=== PATIENT | male | born 1960 | race Caucasian/White ===

== ENCOUNTER 2020-08-03 18:59 | Emergency (ER) | payer BC ==
[~2020-08-03] VITALS: Ht 185.4 cm; Wt 83.9 kg
[2020-08-03 19:20] VITALS: BP 138/77
[2020-08-03] MEDS ORDERED: LIDOCAINE HCL/MPF 1% 30 ML VIAL IJ ONE (19:32)
--- NOTE | 2020-08-03 19:39 | NUR ---
ELIDA SCHULTE AT BEDSIDE FOR SUTURING
[2020-08-03] MEDS ORDERED: ACETAMINOPHEN ES 500 MG TABLET ONE (19:55)
[2020-08-03] MEDS ORDERED: TDAP [DIPH/PERTUSSIS/TET] 0.5 ML VIAL IM ONE (19:55)
[2020-08-03] MEDS: ACETAMINOPHEN 325 MG TABLET PO ONE (20:04)
[2020-08-03] MEDS: TDAP [DIPH/PERTUSSIS/TET] 0.5 ML VIAL IM ONE (20:05)
== END 2020-08-03 20:09 | disposition home or self-care (01) ==
LOC: ER 19:01
DX: S61.213A Laceration without foreign body of left middle finger without damage to nail, initial encounter (principal); Z60.2 Problems related to living alone; W26.8XXA Contact with other sharp object(s), not elsewhere classified, initial encounter; Y93.89 Activity, other specified; Y92.89 Other specified places as the place of occurrence of the external cause; Y99.8 Other external cause status
CPT/HCPCS: 12001; 90471; 90715; 99283; J3490

== ENCOUNTER 2020-08-06 11:11 | Emergency (ER) | payer BC ==
[~2020-08-06] VITALS: Ht 190.5 cm; Wt 95.3 kg
[2020-08-06 11:13] VITALS: BP 124/71
--- NOTE | 2020-08-06 12:00 | NUR ---
SUTURING DONE BY .
--- NOTE | 2020-08-06 12:16 | NUR ---
Patient discharged to home in stable condition. Written and verbal after care instructions given. Patient verbalizes understanding of instruction.
== END 2020-08-06 12:17 | disposition home or self-care (01) ==
LOC: ER 11:16
DX: S61.213D Laceration without foreign body of left middle finger without damage to nail, subsequent encounter (principal); Z60.2 Problems related to living alone; X58.XXXD Exposure to other specified factors, subsequent encounter